=== PATIENT | female | born 1955 | race Native Hawaiian/Other Pacific Islander ===

== ENCOUNTER 2023-02-26 11:58 | Outpatient (CLI) | payer OTHER | END 2023-02-26 21:00 | LOC: MAMMO 11:58 | PROVIDERS: ATTEND Registered Nurse | DX: Z12.31 Encounter for screening mammogram for malignant neoplasm of breast (principal) ==

== ENCOUNTER 2023-08-29 12:57 | Outpatient (CLI) | payer OTHER | END 2023-08-29 19:05 | disposition home or self-care (01) | LOC: RAD 12:57 | PROVIDERS: ATTEND Internal Medicine | DX: Z13.820 Encounter for screening for osteoporosis (principal); N95.8 Other specified menopausal and perimenopausal disorders ==